=== PATIENT | male | born 1995 | race Caucasian/White ===

== ENCOUNTER 2020-01-18 07:14 | Emergency (ER) | payer MEDICAID ==
[~2020-01-18] VITALS: Ht 167.6 cm; Wt 62.5 kg
[~2020-01-18 07:14] MED LIST: CEPH-376 PO; SULF-169 PO
--- NOTE | 2020-01-18 07:52 | NUR ---
PT REPORTS CP THAT HAS BEEN GOING ON FOR ABOUT ONE MONTH, PT DOES REPORT THAT HE USED METH AND GETS THE CP FOLLOWING ITS USE. PT VERY FIGITY IN RM, MOM AT BEDSIDE. PT NOT ANSWERING QUESTIONS ABOUT CP SEVERITY APPROPRIATELY, PT STATES "IM JUST NERVOUS" NOT ABLE TO DESCRIBE CP OR RATE SEVERITY AT THIS TIME. PT TO BP, CONT PULSE OX, CARD MONITOR
--- NOTE | 2020-01-18 08:03 | NUR ---
PT PULLING SELF ON MONITORING EQUIPMENT, STATES "I DONT NEED IT", ER PROVIDER MADE AWARE
[2020-01-18 08:05] VITALS: BP 121/83
[2020-01-18 08:11] LABS: BASOPHILS # (AUTO) 0.03 x10^3/uL (0-0.1); BASOPHILS % (AUTO) 0 % (0-1); EOSINOPHILS # (AUTO) 0.03 x10^3/uL (0-0.4); EOSINOPHILS % (AUTO) 0 % (1-7); LYMPHOCYTES # (AUTO) 1.92 x10^3/uL (1-3.4); LYMPHOCYTES % (AUTO) 21 % (22-44); MD NO; MEAN CORPUSCULAR HEMOGLOBIN 29.5 pg (27.5-34.5); MEAN CORPUSCULAR HGB CONC 33.6 g/dL (33.2-36.2); MEAN CORPUSCULAR VOLUME 87.8 fL (81-97); MEAN PLATELET VOLUME 8.5 fL (7.4-10.4); MONOCYTES # (AUTO) 0.54 x10^3/uL (0.2-0.8); MONOCYTES % (AUTO) 6 % (2-9); NEUTROPHILS # (AUTO) 6.78 x10^3/uL (1.8-6.8); NEUTROPHILS % (AUTO) 73 % (42-75); PLATELET COUNT 205 x10^3/uL (130-400); RED BLOOD COUNT 5.21 x10^6/uL (4.38-5.82); RED CELL DISTRIBUTION WIDTH 13.5 % (9.4-14.8)
[2020-01-18 08:23] LABS: ALBUMIN 4.6 g/dL (3.4-5.0); ANION GAP 6 mmol/L (5-15); CALCIUM 9.4 mg/dL (8.5-10.1); CHLORIDE 107 mmol/L (98-107); CREATININE 1.19 mg/dL (0.7-1.3)
--- NOTE | 2020-01-18 08:51 | NUR ---
THROUGHPUT: NERY FROM TO SET UP TRANSPORT TO FACILITY WITHIN NEXT 15-20 MINS, PA ANASTASIA ALEX.
== END 2020-01-18 09:34 | disposition home or self-care (01) ==
LOC: ED 07:34
DX: R07.2 Precordial pain (principal); F15.122 Other stimulant abuse with intoxication with perceptual disturbance
CPT/HCPCS: 36415; 71045; 80048; 82040; 85025; 93005; 99285

== ENCOUNTER 2020-02-16 00:05 | Emergency (ER) | payer MEDICAID ==
[~2020-02-16] VITALS: Ht 167.6 cm; Wt 67.8 kg
[2020-02-16 00:07] VITALS: BP 115/87
--- NOTE | 2020-02-16 00:14 | NUR ---
ERP WAS IN TO SEE PT.
--- NOTE | 2020-02-16 00:25 | NUR ---
D/C INSTRUCTIONS, MEDS & F/U APPT RV'WD WITH PT, HE VERBALIZES UNDERSTANDING. PT AMBULATED OUT OF ED WITHOUT DIFFICULTY.
== END 2020-02-16 00:36 | disposition home or self-care (01) ==
LOC: ED 00:20
DX: J34.89 Other specified disorders of nose and nasal sinuses (principal); R09.81 Nasal congestion; R51 Headache
CPT/HCPCS: 99282

== ENCOUNTER 2020-06-04 18:51 | Emergency (ER) | payer MEDICAID ==
[~2020-06-04] VITALS: Ht 172.7 cm; Wt 66.0 kg
[2020-06-04 19:01] VITALS: BP 105/73
[2020-06-04 19:29] LABS: BASOPHILS # (AUTO) 0.09 x10^3/uL (0-0.1); BASOPHILS % (AUTO) 1 % (0-1); EOSINOPHILS # (AUTO) 0.09 x10^3/uL (0-0.4); EOSINOPHILS % (AUTO) 1 % (1-7); LYMPHOCYTES # (AUTO) 2.34 x10^3/uL (1-3.4); LYMPHOCYTES % (AUTO) 20 % (22-44); MD NO; MEAN CORPUSCULAR HEMOGLOBIN 29.5 pg (27.5-34.5); MEAN CORPUSCULAR VOLUME 86.9 fL (81-97); MONOCYTES # (AUTO) 0.63 x10^3/uL (0.2-0.8); MONOCYTES % (AUTO) 5 % (2-9); NEUTROPHILS # (AUTO) 8.66 x10^3/uL (1.8-6.8); NEUTROPHILS % (AUTO) 73 % (42-75); PLATELET COUNT 219 x10^3/uL (130-400); RED BLOOD COUNT 5.37 x10^6/uL (4.38-5.82); RED CELL DISTRIBUTION WIDTH 14.8 % (9.4-14.8)
[2020-06-04 19:35] LABS: ALANINE AMINOTRANSFERASE 21 U/L (12-78); ALBUMIN 4.7 g/dL (3.4-5.0); ANION GAP 7 mmol/L (5-15); CALCIUM 9.3 mg/dL (8.5-10.1); CHLORIDE 109 mmol/L (98-107); CREATININE 1.14 mg/dL (0.7-1.3)
[2020-06-04 19:37] LABS: ALKALINE PHOSPHATASE 55 U/L (45-117); BILIRUBIN,TOTAL 1.4 mg/dL (0.2-1.0); TOTAL PROTEIN 8.3 g/dL (6.4-8.2)
[2020-06-04] MEDS ORDERED: KETOROLAC 30 MG/1 ML ONE (19:53)
[2020-06-04] MEDS ORDERED: ACETAMINOPHEN 500 MG TABLET ONE (19:53)
[2020-06-04] MEDS ORDERED: KETOROLAC 30 MG/1 ML IM ONE (20:00)
[2020-06-04] MEDS ORDERED: ACETAMINOPHEN 500 MG TABLET PO ONE (20:00)
== END 2020-06-04 20:09 | disposition home or self-care (01) ==
LOC: ED 20:00
DX: R07.89 Other chest pain (principal); R94.31 Abnormal electrocardiogram [ECG] [EKG]
CPT/HCPCS: 36415; 71045; 80053; 85025; 93005; 96372; 99285; J1885